=== PATIENT | female | born 1970 | race Hispanic/Latino ===

== ENCOUNTER 2020-05-24 08:03 | Observation (INO) | payer BC, OTHER ==
[2020-05-21 10:50] LABS: BASOPHILS % 0.3 % (0.0-1.0); EOSINOPHILS # (AUTO) 0.2 (0.0-0.4); EOSINOPHILS % 2.7 % (0.0-6.0); HEMOGLOBIN 12.4 g/dL (12.0-16.0); LYMPHOCYTES # (AUTO) 2.3 (1.0-3.2); LYMPHOCYTES % 39.7 % (18.0-39.1); MEAN CORPUSCULAR HEMOGLOBIN 24.9 pg (28-32); MEAN CORPUSCULAR HGB CONC 31.8 g/dL (31-35); MEAN CORPUSCULAR VOLUME 78.5 fL (81-99); MONOCYTES # (AUTO) 0.3 (0.2-0.8); MONOCYTES % 5.5 % (4.4-11.3); NEUTROPHILS % 51.6 % (38.7-80.0); PLATELET COUNT 217 x10e3/uL (140-360); RED BLOOD COUNT 4.97 x10e6/uL (3.6-5.1); RED CELL DISTRIBUTION WIDTH 14.3 % (11.7-14.4)
[2020-05-21 11:05] LABS: INR 0.81; PROTHROMBIN TIME 11.6 seconds (11.9-14.5)
[2020-05-21 11:06] LABS: PARTIAL THROMBOPLASTIN TIME 24.1 seconds (23.8-35.5)
[2020-05-21 11:12] LABS: ANION GAP 17.1 mmol/L (8-16); BLOOD UREA NITROGEN 9 mg/dL (7-26); BUN/CREATININE RATIO 11 (6-25); CALCIUM 9.4 mg/dL (8.4-10.2); CARBON DIOXIDE 23 mmol/L (22-29); CHLORIDE 99 mmol/L (98-107); CREATININE, SERUM 0.85 mg/dL (0.57-1.11); EST GLOMERULAR FILTRATION RATE > 60 ML/MIN (60-); POTASSIUM 4.1 mmol/L (3.5-5.1); SODIUM 135 mmol/L (136-145)
[2020-05-21 11:16] LABS: GLUCOSE 415 mg/dL (74-118)
[~2020-05-24] VITALS: Ht 142.2 cm; Wt 82.6 kg
[~2020-05-24 08:03] MED LIST: DIAZEPAM5 MG PO; IBUPROFEN 800MG/ 200ML 200 ML IV ONE; IBUPROFEN400 MG PO; LIDOCAINE HCL (LTA) 4 ML SOLN ONE; TYLENOL; TYLENOL # 31 EA PO; VITAMIN C
[2020-05-24] MEDS ORDERED: CEFAZOLIN SOD 1 GM/NS 50ML 100 ML IV ONE (09:11)
[2020-05-24] MEDS ORDERED: METFORMIN HCL500 MG PO (09:38)
[2020-05-24] MEDS ORDERED: GLIMEPIRIDE2 MG PO (09:39)
[2020-05-24] MEDS ORDERED: INSULIN REGULAR, HUMAN 100 UNIT/1 ML 3ML VIAL ONE (09:40)
[2020-05-24] MEDS ORDERED: THROMBIN FOR SOLN 5,000 UNIT VIAL ONE (09:55)
[2020-05-24] MEDS ORDERED: VANCOMYCIN HCL 1 GM VIAL ONE (09:55)
[2020-05-24] MEDS ORDERED: LIDOCAINE 1% W/EPINEPHRINE 20 ML VIAL ONE (09:55)
[2020-05-24] MEDS ORDERED: SEVOFLURANE INHAL SOLN 250 ML PEN BTL ONE (12:13)
[2020-05-24] MEDS ORDERED: ROCURONIUM BROMIDE 10 MG/ML 5ML VIAL IV ONE (12:13)
[2020-05-24] MEDS ORDERED: GLYCOPYRROLATE INJ 0.2 MG/ML VIAL ONE (12:13)
[2020-05-24] MEDS ORDERED: DEXAMETHASONE SOD PHOS INJ 4 MG/ML VIAL ONE (12:13)
[2020-05-24] MEDS ORDERED: PROPOFOL IV EMULSION 10 MG/ML 20 ML VIAL ONE (12:13)
[2020-05-24] MEDS ORDERED: ONDANSETRON HCL INJ 2MG/ML 2ML 2 MG/ML VIAL ONE (12:13)
[2020-05-24] MEDS ORDERED: LIDOCAINE HCL 2% LOCAL INJ 5 ML SDV VIAL INJ ONE (12:13)
[2020-05-24] MEDS ORDERED: NEOSTIGMINE 1 MG/ML 10ML VIAL ONE (12:13)
[2020-05-24] MEDS ORDERED: LIDOCAINE HCL 2% JELLY 5 ML TUBE ONE (12:13)
[2020-05-24] MEDS ORDERED: MAGNESIUM/ALUMINUM/SIMETHICONE 30 ML UDC PO PRN (12:15)
[2020-05-24] MEDS ORDERED: OXYCODONE/ACETAMINOPHEN 5-325 1 EACH TABLET PO PRN (12:15)
[2020-05-24] MEDS ORDERED: PROMETHAZINE HCL (IM) 25 MG/ML VIAL IM PRN (12:15)
[2020-05-24] MEDS ORDERED: CEPACOL SORE THROAT LOZENGES PO PRN (12:15)
[2020-05-24] MEDS ORDERED: CARISOPRODOL 350 MG TAB PO PRN (12:15)
[2020-05-24] MEDS ORDERED: ACETAMINOPHEN 325 MG TAB PO PRN (12:15)
[2020-05-24] MEDS ORDERED: ACETAMINOPHEN/CODEINE 300MG - 30MG TAB PO SCH (12:15)
[2020-05-24] MEDS ORDERED: HYDROMORPHONE 2MG/ML 2 MG/ML ML IV PRN ×2 (12:15)
[2020-05-24] MEDS ORDERED: ONDANSETRON HCL INJ 2MG/ML 2ML 2 MG/ML VIAL IV PRN (12:15)
[2020-05-24] MEDS ORDERED: DEXTROSE 50% SYRINGE 50 ML IV PRN ×2 (12:15→18:45)
[2020-05-24] MEDS ORDERED: FENTANYL CITRATE/PF 100MCG/2 ML INJ ONE ×2 (12:56→17:23)
[2020-05-24 14:38] VITALS: BP 160/78
[2020-05-24 16:07] VITALS: BP 131/86
[2020-05-24 16:36] VITALS: BP 160/78
[2020-05-24 16:45] VITALS: BP 160/78
[2020-05-24] MEDS: LACTATED RINGER'S 1,000 ML IV SCH ×2 (16:58→20:35)
[2020-05-24] MEDS ORDERED: MIDAZOLAM HCL 2 MG/2 ML VIAL ONE (17:23)
[2020-05-24] MEDS: CEFAZOLIN SOD 1 GM/NS 50ML 50 ML IV SCH (17:36)
[2020-05-24] MEDS: METFORMIN HCL 500 MG TAB PO SCH (17:36)
[2020-05-24] MEDS: INSULIN LISPRO 100 UNIT/1 ML 3ML VIAL SQ SCH ×2 (18:48→20:24)
[2020-05-24 20:00] VITALS: BP 130/58
[2020-05-24] MEDS ORDERED: DIAZEPAM 5 MG TAB PO SCH (21:00)
[2020-05-24] MEDS ORDERED: ZOLPIDEM TARTRATE 5 MG TAB PO PRN (21:00)
[2020-05-25] VITALS: BP 125/61
[2020-05-25] MEDS: CEFAZOLIN SOD 1 GM/NS 50ML 50 ML IV SCH ×2 (01:58→09:06)
[2020-05-25 03:45] VITALS: BP 127/76
[2020-05-25] MEDS: LACTATED RINGER'S 1,000 ML IV SCH (04:55)
[2020-05-25] MEDS ORDERED: GLIMEPIRIDE 2 MG TAB PO SCH (07:30)
[2020-05-25 08:00] VITALS: BP 116/74
[2020-05-25] MEDS: INSULIN LISPRO 100 UNIT/1 ML 3ML VIAL SQ SCH (08:35)
[2020-05-25 08:58] VITALS: BP 116/74
[2020-05-25] MEDS ORDERED: IBUPROFEN 600 MG TAB PO SCH (09:00)
[2020-05-25] MEDS ORDERED: IBUPROFEN 400 MG TAB PO SCH (09:00)
[2020-05-25] MEDS: METFORMIN HCL 500 MG TAB PO SCH (09:05)
[2020-05-25 12:09] VITALS: BP 110/88
== END 2020-05-25 12:03 | disposition home or self-care (01) ==
LOC: OR 08:03 → PACU V 12:12 → MED/SURG 14:33
PROVIDERS: ADMIT Neurological Surgery; ATTEND Neurological Surgery
DX: M50.122 Cervical disc disorder at C5-C6 level with radiculopathy (principal); Z11.59 Encounter for screening for other viral diseases
CPT/HCPCS: 20931; 22551; 22845; 36415 ×3; 71046; 72040; 77003; 80048; 82948 ×2; 85025; 85610; 85730; 86850; 86900; 88304; 93005; G0378 ×2; J0690 ×2; J1100; J2001 ×2; J2250; J2405; J2704; J2710; J3010; J3370; U0002; C1713; C9359; J1817

== ENCOUNTER → 2020-06-18 | Outpatient (CLI) | payer BC ==
[~2020-06-18] MED LIST changes: +GLIMEPIRIDE2 MG PO; -IBUPROFEN 800MG/ 200ML 200 ML IV ONE; -LIDOCAINE HCL (LTA) 4 ML SOLN ONE; +METFORMIN HCL500 MG PO
== END ==
LOC: RAD 10:33
PROVIDERS: ATTEND Neurological Surgery
DX: M50.20 Other cervical disc displacement, unspecified cervical region (principal); M43.22 Fusion of spine, cervical region
CPT/HCPCS: 72050